=== PATIENT | female | born 1980 | race African-American/Black ===

== ENCOUNTER 2017-12-08 10:45 | Emergency (ER) | payer MEDICARE | END 2017-12-08 12:20 | disposition home or self-care (01) | LOC: D.ER 10:45 | DX: J11.1 Influenza due to unidentified influenza virus with other respiratory manifestations (principal); J20.9 Acute bronchitis, unspecified; E11.9 Type 2 diabetes mellitus without complications ==

== ENCOUNTER 2017-12-17 10:19 | Emergency (ER) | payer MEDICARE | END 2017-12-17 14:47 | disposition home or self-care (01) | LOC: D.ER 10:19 | DX: J06.9 Acute upper respiratory infection, unspecified (principal); J02.9 Acute pharyngitis, unspecified; E11.9 Type 2 diabetes mellitus without complications ==

== ENCOUNTER 2019-11-02 21:31 | Emergency (ER) | payer MEDICARE ==
[2019-11-02 21:39] VITALS: Ht 172.7 cm
[2019-11-02] MEDS ORDERED: SEIZURE MEDS (21:40)
[2019-11-02] MEDS ORDERED: BP MEDS (21:40)
[2019-11-02 22:00] LABS: BASOPHILS 0.2 % (0-2); EOSINOPHILS 1.4 % (0-7); HEMATOCRIT 39.3 % (36.0-48.0); HEMOGLOBIN 12.8 g/dL (12-16); IMMATURE GRANULOCYTES 0.3 % (0-5); LYMPHOCYTES 33.4 % (15-50); MCH 26.2 pg (26.0-34.0); MCHC 32.6 g/dL (31.0-37.0); MCV 80.4 fL (80.0-100.0); MEAN PLATELET VOLUME 9.1 fL (7.4-10.4); MONOCYTES 10.8 % (2-11); NEUTROPHILS 53.9 % (40-80); PLATELET COUNT 320 10x3/uL (130-400); RBC 4.89 10x6/uL (4.00-5.40); RDW 13.1 % (11.5-14.5); WBC 6.3 10x3/uL (4.8-10.8)
[2019-11-02 22:19] LABS: ALBUMIN 3.4 g/dL (3.4-5.0); ALKALINE PHOSPHATASE 89 U/L (46-116); ALT (SGPT) 22 U/L (10-68); BILIRUBIN - TOTAL 0.62 mg/dL (0.2-1.3); CALCIUM 8.5 mg/dL (8.5-10.1); CARBON DIOXIDE 24.6 mmol/L (21.0-32.0); CHLORIDE - SERUM 99 mmol/L (98-107); CKMB 0.3 U/L (0.0-3.6); CREATINE KINASE 89 UL (21-215); MAGNESIUM - SERUM 1.8 mg/dL (1.8-2.4); POTASSIUM - SERUM 3.9 mmol/L (3.5-5.1); PROTEIN - SERUM 7.8 g/dL (6.4-8.2); SODIUM 134 mmol/L (136-145); THYROID STIMULATING HORMONE 1.36 uIU/mL (0.36-3.74); UREA NITROGEN 10 mg/dL (7-18); eGFR NON AFRICAN AMERICAN 65 mL/min (90-120)
[2019-11-02 22:23] LABS: CALC OSMOLALITY 285 mosm/kg (275-300); GLUCOSE 441 mg/dL (74-106); TROPONIN-I < 0.017 ng/mL (0.000-0.060)
[2019-11-02 22:45] LABS: APTT 25.3 SECONDS (22.8-39.4); INR 0.96 (0.85-1.17); PROTIME 12.3 SECONDS (11.6-15.0)
[2019-11-03 01:34] VITALS: BP 123/73
== END 2019-11-03 01:34 | disposition short-term general hospital (02) ==
LOC: D.ER 21:31
PROVIDERS: Family Medicine
DX: R73.9 Hyperglycemia, unspecified (principal); Z86.73 Personal history of transient ischemic attack (TIA), and cerebral infarction without residual deficits; R53.1 Weakness; I10 Essential (primary) hypertension

== ENCOUNTER 2020-05-01 20:07 | Emergency (ER) | payer MEDICARE ==
[~2020-05-01] VITALS: Ht 172.7 cm; Wt 77.3 kg
[~2020-05-01 20:07] MED LIST: BP MEDS; SEIZURE MEDS
[2020-05-01 20:12] VITALS: Ht 172.7 cm; Wt 77.3 kg
[2020-05-01 20:36] LABS: BASOPHILS 0.1 % (0-2); EOSINOPHILS 0.2 % (0-7); HEMATOCRIT 41.4 % (36.0-48.0); HEMOGLOBIN 13.3 g/dL (12-16); IMMATURE GRANULOCYTES 0.3 % (0-5); LYMPHOCYTES 13.9 % (15-50); MCH 26.3 pg (26.0-34.0); MCHC 32.1 g/dL (31.0-37.0); MEAN PLATELET VOLUME 9.3 fL (7.4-10.4); NEUTROPHILS 75.5 % (40-80); PLATELET COUNT 361 10x3/uL (130-400); RBC 5.05 10x6/uL (4.00-5.40); RDW 12.9 % (11.5-14.5); WBC 12.3 10x3/uL (4.8-10.8)
[2020-05-01 20:47] LABS: APTT 28.8 SECONDS (22.8-39.4); INR 0.96 (0.85-1.17); PROTIME 12.8 SECONDS (11.6-15.0)
[2020-05-01] MEDS ORDERED: GLUCOPHAGE500 MG PO (20:47)
[2020-05-01] MEDS ORDERED: BAYER CHEWABLE81 MG PO (20:47)
[2020-05-01] MEDS ORDERED: ELAVIL75 MG PO (20:55)
[2020-05-01 21:04] LABS: ALBUMIN 3.7 g/dL (3.4-5.0); ALKALINE PHOSPHATASE 110 U/L (30-120); ALT (SGPT) 22 U/L (10-68); BILIRUBIN - TOTAL 0.73 mg/dL (0.2-1.3); CALCIUM 9.3 mg/dL (8.5-10.1); CARBON DIOXIDE 21.7 mmol/L (21.0-32.0); CHLORIDE - SERUM 93 mmol/L (98-107); CKMB 0.3 U/L (0.0-3.6); CREATINE KINASE 85 UL (21-215); CREATININE - SERUM 1.2 mg/dL (0.6-1.3); PROTEIN - SERUM 8.5 g/dL (6.4-8.2); SODIUM 126 mmol/L (136-145); UREA NITROGEN 8 mg/dL (7-18); eGFR NON AFRICAN AMERICAN 52 mL/min (90-120)
[2020-05-01 21:06] LABS: CALC OSMOLALITY 274 mosm/kg (275-300); TROPONIN-I < 0.017 ng/mL (0.000-0.060)
[2020-05-01 21:08] LABS: GLUCOSE 533 mg/dL (74-106)
[2020-05-01] MEDS ORDERED: APTIOM400 MG PO (21:36)
[2020-05-01] MEDS ORDERED: GLUCOTROL 5 MG T5 MG PO (21:38)
[2020-05-01] MEDS ORDERED: HUMULIN R100 UNIT/1 SC (21:38)
[2020-05-01] MEDS ORDERED: HUMALOG 30100 UNITS/ SC (21:43)
[2020-05-01 22:14] LABS: BILIRUBIN NEGATIVE (NEGATIVE); GLUCOSE 1000 mg/dL (NEGATIVE); KETONE SMALL mg/dL (NEGATIVE); NITRITE NEGATIVE (NEGATIVE); SPECIFIC GRAVITY 1.005 (1.005-1.020); UROBILINOGEN NORMAL (NORMAL)
[2020-05-01 22:23] LABS: UDS - AMPHET NEGATIVE QUAL (NEGATIVE); UDS - BARB NEGATIVE QUAL (NEGATIVE); UDS - BENZO NEGATIVE QUAL (NEGATIVE); UDS - COCAINE NEGATIVE QUAL (NEGATIVE); UDS - OPIATE NEGATIVE QUAL (NEGATIVE); UDS - PCP NEGATIVE QUAL (NEGATIVE); UDS - THC POSITIVE QUAL (NEGATIVE)
[2020-05-02 00:32] VITALS: BP 121/81
== END 2020-05-02 00:15 | disposition short-term general hospital (02) ==
LOC: D.ER 20:07
PROVIDERS: Family Medicine
DX: R53.1 Weakness (principal); R56.9 Unspecified convulsions; R00.0 Tachycardia, unspecified; E11.9 Type 2 diabetes mellitus without complications; Z86.73 Personal history of transient ischemic attack (TIA), and cerebral infarction without residual deficits; Z79.84 Long term (current) use of oral hypoglycemic drugs